=== PATIENT | female | born 1950 | race Caucasian/White ===

== ENCOUNTER 2021-02-28 16:44 | Inpatient (IN) | payer OTHER ==
[2021-02-28] MEDS ORDERED: MAG HYDROX/AL HYDROX/SIMETH 30 ML UNIT-DOSE CUP PO PRN (22:19)
[2021-02-28] MEDS ORDERED: ACETAMINOPHEN 325 MG TABLET (FP) PO PRN ×2 (22:19)
[2021-02-28] MEDS ORDERED: MAGNESIUM CITRATE 300 ML BOTTLE PO PRN (22:19)
[2021-02-28] MEDS ORDERED: BISMUTH SUBSALICYLATE 524 MG/30 ML PO PRN (22:19)
[2021-02-28] MEDS ORDERED: ONDANSETRON *ODT* 4 MG TABLET SL PRN (22:19)
[2021-02-28] MEDS ORDERED: MENTHOL/PHENOL 1 EACH UD MM PRN (22:19)
[2021-02-28] MEDS ORDERED: MAGNESIUM HYDROX 2400MG/30ML ORAL SUSPENSION 30 ML CUP PO PRN (22:19)
[2021-02-28] MEDS ORDERED: methaDONE HCL 10 MG TABLET (FOR DETOX USE ONLY) PO ONE (22:21)
[2021-02-28] MEDS ORDERED: hydrOXYzine PAMOATE 25 MG CAPSULE (FP) PO ONE (23:04)
[2021-02-28] MEDS ORDERED: cloNIDine HCL 0.1 MG TABLET ONE (23:04)
[2021-02-28] MEDS ORDERED: methaDONE HCL 10 MG TABLET (FOR DETOX USE ONLY) ONE (23:04)
[2021-02-28] MEDS: hydrOXYzine PAMOATE 25 MG CAPSULE (FP) PO PRN (23:06)
[2021-02-28] MEDS: cloNIDine HCL 0.1 MG TABLET PO PRN (23:06)
[2021-03-01 00:07] VITALS: BMI 24.7
[2021-03-01] MEDS: cloNIDine HCL 0.1 MG TABLET PO PRN ×3 (06:18→22:15)
[2021-03-01] MEDS ORDERED: methaDONE HCL 10 MG TABLET (FOR DETOX USE ONLY) PO ONE (10:00)
[2021-03-01] MEDS ORDERED: methaDONE HCL 10 MG TABLET (FOR DETOX USE ONLY) ONE (10:12)
[2021-03-01] MEDS: PRENATAL VITAMINS W/ FOLIC ACID TABLET (FP) PO SCH (10:17)
[2021-03-01 13:13] LABS: HEMATOCRIT 42.2 % (32.4-45.2); HEMOGLOBIN 13.8 GM/dL (10.7-15.3); MCHC 32.7 g/dl (32.0-36.0); MEAN CELL VOLUME 91.9 fl (80-96); MEAN PLT VOLUME 9.4 fl (7.5-11.1); PLATELET COUNT 196 10^3/uL (134-434); RBC 4.59 M/mm3 (3.60-5.2); RDW 13.6 % (11.6-15.6); WHITE BLOOD COUNT 6.7 K/mm3 (4.0-10.0)
[2021-03-01 13:20] LABS: ALBUMIN 3.6 g/dl (3.4-5.0); BLOOD UREA NITROGEN 11.5 mg/dL (7-18)
[2021-03-01 13:21] LABS: BILIRUBIN,TOTAL 0.9 mg/dL (0.2-1); CALCIUM 9.5 mg/dL (8.5-10.1); CREATININE 0.8 mg/dL (0.55-1.3); TOT PROT 7.7 g/dl (6.4-8.2)
[2021-03-01] MEDS: diazePAM 5 MG TABLET PO PRN (17:09)
[2021-03-01] MEDS: THIAMINE HCL 100 MG TABLET (FP) PO SCH (22:15)
[2021-03-01] MEDS: hydrOXYzine PAMOATE 25 MG CAPSULE (FP) PO PRN (22:15)
[2021-03-01] MEDS: MELATONIN 5 MG TABLETS PO SCH (22:15)
[2021-03-01] MEDS: IBUPROFEN 400 MG TABLET (FP) PO PRN (23:13)
[2021-03-02] MEDS ORDERED: methaDONE HCL 10 MG TABLET (FOR DETOX USE ONLY) PO ONE (10:00)
[2021-03-02] MEDS: PRENATAL VITAMINS W/ FOLIC ACID TABLET (FP) PO SCH (10:36)
[2021-03-02 20:45] VITALS: TEMP 96.8
[2021-03-02] MEDS: MELATONIN 5 MG TABLETS PO SCH (22:23)
[2021-03-02] MEDS: THIAMINE HCL 100 MG TABLET (FP) PO SCH (22:23)
[2021-03-02] MEDS: IBUPROFEN 400 MG TABLET (FP) PO PRN (22:24)
[2021-03-03] MEDS ORDERED: ALBUTEROL SO4 HFA INHALER IH ONE (07:26)
[2021-03-03] MEDS: diazePAM 5 MG TABLET PO PRN (07:40)
[2021-03-03 10:04] VITALS: BP 157/81; PULSE 81
[2021-03-03] MEDS: PRENATAL VITAMINS W/ FOLIC ACID TABLET (FP) PO SCH (10:09)
== END 2021-03-03 11:20 | disposition home or self-care (01) | DRG 897 ==
LOC: YASAS 16:44 → Y3N 23:19
PROVIDERS: ADMIT Allergy & Immunology; ATTEND Allergy & Immunology
PROC: HZ2ZZZZ Detoxification Services for Substance Abuse Treatment (ICD-10-PCS; principal; 2021-02-28)
DX: F11.23 Opioid dependence with withdrawal (principal); F14.10 Cocaine abuse, uncomplicated; M41.9 Scoliosis, unspecified; R26.89 Other abnormalities of gait and mobility; M25.472 Effusion, left ankle; Z88.8 Allergy status to other drugs, medicaments and biological substances
CPT/HCPCS: 36415; 73610-TC-LT-FY; 80053; 85027; 86780; C9803; J0735; U0003; U0005